=== PATIENT | female | born 1960 | race Caucasian/White ===

== ENCOUNTER 2017-12-08 09:52 | Emergency (ER) | payer SELFPAY ==
[2017-12-08 12:34] LABS: Urine Blood 2+ (NEG); Urine Glucose NEGATIVE (NEG); Urine Protein 2+ (NEG); Urine Specific Gravity >1.030 (1.005-1.030); Urine pH 5.5 (5.0-7.0)
[2017-12-08] MEDS ORDERED: KETOROLAC 30 MG/ML INJ ONE (12:36)
[2017-12-08] MEDS ORDERED: DIPHENHYDRAMINE 50 MG/ML VIAL ONE (12:36)
[2017-12-08] MEDS ORDERED: METOCLOPRAMIDE 10 MG/2mL INJ ONE (12:36)
[2017-12-08] MEDS ORDERED: NA CHLORIDE 0.9% 1,000 ML ONE (12:37)
[2017-12-08 12:55] LABS: Absolute Monocytes 1.4 K/uL (0.1-1.3); Absolute Neutrophil 14.4 K/uL (1.8-8.0); Basophils % 0.1 % (0-1.3); Eosinophils % 0.3 % (0-4.4); Hematocrit 46.8 % (36.0-45.0); Lymphocytes % 5.8 % (15.3-44.8); MCH 29.4 pg (27.0-35.0); MPV 10.8 fL (7.6-11.3); Monocytes % 8.1 % (3.3-12.3); RBC Red Blood Cell Count 5.26 M/uL (3.86-4.86)
[2017-12-08 13:11] LABS: Bicarbonate 27 mEq/L (21-31); Glucose Level 95 mg/dL (65-120); Lipase 15 U/L (22-51); Potassium 3.7 mEq/L (3.6-5.0); Sodium Level 138 mEq/L (135-145)
[2017-12-08 13:18] LABS: ALT/SGPT 14 IU/L (10-60); AST/SGOT 17 IU/L (10-42); Albumin 3.6 g/dL (3.2-5.5); Alkaline Phosphatase 94 IU/L (42-121); BUN Blood Urea Nitrogen 15 mg/dL (6-20); Bilirubin Direct < 0.1 mg/dL (0-0.2); Bilirubin Total 0.4 mg/dL (0.3-1.2)
--- NOTE | 2017-12-08 13:24 | RAD REPORT ---
EXAM DESCRIPTION: CT - Stone Protocol - 12/08/2017 1:10 pm CLINICAL HISTORY: Abdominal pain, diarrhea, history of kidney stones COMPARISON: None. TECHNIQUE: Axial 5 mm thick images were obtained without oral or IV contrast. The [id number] span s the entirety of the system partially obscuring uppermost abdomen and lung bases. All CT scans are performed using dose optimization technique as appropriate and may include automated exposure control or mA/KV adjustment according to patient size. FINDINGS: No hydronephrosis is present and no obstructing ureteral calculi. No suspicious renal mass es. Isodense masses and pyelonephritis are not excluded on a stone protocol CT scan. Urinary bladder is mostly contracted. No bladder calculi seen. Patient has several 3 mm or less nonobstructing calice al calculi on the left. There is a 2 millimeter calcification lower pole calyx on the right. Imaged portions of the liver, spleen and pancreas show no suspicious findings on non-contrast imaging . The 3 centimeter cyst is present in the left upper quadrant localizing within the left lobe of the liver that extends as a normal variant into the far left lateral aspect of the upper abdomen. No gall bladder or biliary tree abnormality identified. No significant adrenal finding. No gastric dilatation or gastric wall thickening. No small bowel abnormality. Acute appendicitis is n ot suspected. There is circumferential wall thickening and edema involving the cecum and ascending co lara. This extends to the hepatic flexure and involved to a lesser degree the right side of the transv erse colon. Left side of the colon does not appear to be involved by any acute process. Sigmoid colon is tortuous. Trace amount of free fluid is seen in the dependent portion of the pelvis. There is a minimal amount of stranding adjacent to the involved right side colon. No hernia, mass or bulky lymphadenopathy noted. No free air, pneumatosis or other inflammatory strand ing. No significant bony abnormality. Infrarenal aorta reaches 2.5 cm in AP diameter. IMPRESSION: Circumferential wall thickening and edema involving the right-side of the colon from cec um to mid transverse colon. This is most likely a nonspecific colitis. Ischemic etiology is not excluded. There are no significan t calcifications at the celiac or SMA origins. Bilateral nonobstructing caliceal calculi. Isodense masses and pyelonephritis are not excluded on stone protocol technique.
[2017-12-08 13:25] LABS: Urine Bacteria 20-50 /HPF (<20); Urine Culture Reflex Order REFLEXED; Urine Mucus 1+ /HPF (NONE SEEN); Urine RBC 20-50 /HPF (NONE SEEN)
[2017-12-08 13:34] LABS: Blood Morphology Comment NOT SEEN (NOT SEEN); Platelet Estimate ADEQ
--- NOTE | 2017-12-08 13:51 | EKG ---
Test Date: 2017-12-08 Test Time: 13:00:14 Validation Scientist: PAUL MEASUREMENT RESULTS: Intervals: Rate: 79 WY: 138 QRSD: 84 QT: 390 QTc: 447 [place]: P: 61 WY: 138 QRS: 65 T: 57 INTERPRETIVE STATEMENTS: Normal sinus rhythm Normal ECG No previous ECG available for comparison Electronically Signed On 12-08-17 13:50:38 CDT by Travis Herrera
[2017-12-08] MEDS ORDERED: FENTANYL CITR 100 MCG/2 ML ONE (14:02)
[2017-12-08] MEDS ORDERED: CEFTRIAXONE/SWI 1gm 1 GM/10 ML SYR ONE (14:02)
[2017-12-08] MEDS ORDERED: METRONIDAZOLE 500mg IVPB 500 MG/100 ML BAG IV ONE (14:03)
--- NOTE | 2017-12-08 14:22 | EDPHYS ---
Physician Documentation [facility] Name: Alvina Baker Age: 56 yrs Sex: Female : 1960 Arrival Date: 12/08/2017 Time: 09:58 Bed 5 Private MD: None, None ED Physician Yash Ireland HPI: 12/08 14:00 This 56 yrs old Female presents to ER via Ambulatory with complaints of gs Abdominal Pain, Diarrhea. 13:58 The patient presents to the emergency department with diarrhea, abdominal pain. gs 14:00 Onset: The symptoms/episode began/occurred 3 day(s) ago, and became worse and became gs persistent. Possible causes: unknown. The symptoms are aggravated by nothing. The symptoms are alleviated by nothing. Associated signs and symptoms: Pertinent positives: diarrhea, nausea, Pertinent negatives: constipation, dysuria, fever, GI bleeding, vomiting. Severity of symptoms: At their worst the symptoms were moderate in the emergency department the symptoms are unchanged. The patient has not experienced similar symptoms in the past. The patient has not recently seen a physician. 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 - Social history:: Smoking status: Patient uses tobacco products, smokes one pack cigarettes per day. ROS: 14:00 Constitutional: Negative for chills, fever. gs 14:00 Cardiovascular: Negative for chest pain. 14:00 Respiratory: Negative for shortness of breath. 14:00 Neuro: Positive for headache, not as bad as usual migraine. 14:00 All other systems are negative. Exam: 14:00 Head/Face: Normocephalic, atraumatic. Eyes: Pupils equal round and reactive to light, gs extra-ocular motions intact. Lids and lashes normal. Conjunctiva and sclera are non-icteric and not injected. Cornea within normal limits. Periorbital areas with no swelling, redness, or edema. ENT: Nares patent. No nasal discharge, no septal abnormalities noted. Tympanic membranes are normal and external auditory canals are clear. Oropharynx with no redness, swelling, or masses, exudates, or evidence of obstruction, uvula midline. Mucous membranes moist. Neck: Trachea midline, no thyromegaly or masses palpated, and no cervical lymphadenopathy. Supple, full range of motion without nuchal rigidity, or vertebral point tenderness. No Meningismus. Chest/axilla: Normal chest wall appearance and motion. Nontender with no deformity. No lesions are appreciated. 14:00 Constitutional: The patient appears alert, awake. 14:00 Constitutional: The patient appears uncomfortable. 14:25 Respiratory: Lungs have equal breath sounds bilaterally, clear to auscultation and gs percussion. No rales, rhonchi or wheezes noted. No increased work of breathing, no retractions or nasal flaring. Back: No spinal tenderness. No costovertebral tenderness. Full range of motion. Skin: Warm, dry with normal turgor. Normal color with no rashes, no lesions, and no evidence of cellulitis. MS/ Extremity: Pulses equal, no cyanosis. Neurovascular intact. Full, normal range of motion. Neuro: Awake and alert, GCS 15, oriented to person, place, time, and situation. Cranial nerves II-XII grossly intact. Motor strength 5/5 in all extremities. Sensory grossly intact. Cerebellar exam normal. Normal gait. 14:25 Cardiovascular: Rate: normal, Rhythm: regular, Pulses: no pulse deficits are appreciated. 14:25 ECG was reviewed by the Attending Physician. 14:25 Abdomen/GI: Palpation: mild abdominal tenderness, in the suprapubic area, right lower quadrant and left lower quadrant, rebound tenderness, is not appreciated. Vital Signs: 10:39 BP 147 / 94; Pulse 99; Resp 18; Temp 97.4; Pulse Ox 96% on R/A; Weight 63.5 kg; Height iw 5 ft. 3 in. (160.02 cm); Pain 7/10; 12:30 BP 139 / 88; Pulse 96; Resp 18; Pulse Ox 97% on R/A; tw2 13:18 BP 143 / 78; Pulse 82; Resp 17; Pulse Ox 97% on R/A; tw2 13:56 BP 130 / 76; Pulse 78; Resp 16; Pulse Ox 99% on R/A; jl7 14:46 BP 109 / 61; Pulse 77; Resp 16 S; Pulse Ox 97% on R/A; jl7 10:39 Body Mass Index 24.80 (63.50 kg, 160.02 cm) iw MDM: 12:28 Patient medically screened. 14:17 Differential diagnosis: Nonspecific abd pain, diverticulitis, viral gastroenteritis, gs gastroenteritis. Data reviewed: vital signs, nurses notes. Counseling: I had a detailed discussion with the patient and/or guardian regarding: the presence of at least one elevated blood pressure reading (>120/80) during this emergency department visit. Response to treatment: the patient's symptoms have markedly improved after treatment, patient is well hydrated. tolerating po, and as a result, I will discharge patient. Special discussion: I have referred the patient to see his PCP for further evaluation of high blood pressure. 12/08 12:26 Order name: Urine Dipstick--Ancillary (enter results); Complete Time: 13:29 12/08 12:30 Order name: Basic Metabolic Panel; Complete Time: 13:29 12/08 12:30 Order name: CBC with Diff; Complete Time: 13:55 12/08 12:30 Order name: Hepatic Function; Complete Time: 13:29 12/08 12:30 Order name: Lipase; Complete Time: 13:29 12/08 12:30 Order name: Urine Microscopic Only; Complete Time: 13:29 12/08 12:30 Order name: CT Stone Protocol; Complete Time: 13:29 12/08 13:26 Order name: Urine Culture [facility] 12/08 13:34 Order name: Blood Culture* 12/08 13:35 Order name: Manual Differential; Complete Time: 13:55 [facility] 12/08 12:30 Order name: IV Saline Lock; Complete Time: 12:34 12/08 12:30 Order name: Labs collected and sent; Complete Time: 12:35 12/08 12:30 Order name: EKG; Complete Time: 12:31 12/08 12:30 Order name: EKG - Nurse/Tech; Complete Time: 12:50 gs EC:25 Rate is 79 beats/min. Rhythm is regular. OR interval is normal. QRS interval is normal. gs T waves are Normal. No ST changes noted. Clinical impression: Abnormal EKG without significant change. Interpreted by me. Administered Medications: 12:42 Drug: TORadol 30 mg Route: IVP; Site: left antecubital; tw2 14:16 Follow up: Response: No adverse reaction; Pain is unchanged, physician notified; Pain tw2 is unchanged, physician notified, pt states "headache is better, just not my stomach" 12:44 Drug: Reglan 5 mg Route: IVP; Site: left antecubital; tw2 14:16 Follow up: Response: No adverse reaction tw2 12:47 Drug: Benadryl 12.5 mg Route: IVP; Site: left antecubital; tw2 14:17 Follow up: Response: No adverse reaction tw2 12:49 Drug: NS 0.9% 1000 ml Route: IV; Rate: 1 bolus; Site: left antecubital; tw2 14:15 Follow up: Response: No adverse reaction; IV Status: Completed infusion; IV Intake: tw2 1000ml 14:52 Follow up: Response: No adverse reaction; IV Status: Completed infusion; IV Intake: tw2 1000ml 14:12 Drug: Flagyl 500 mg Volume: 100 ml; Route: IVPB; Rate: 200 ml/hr; Infused Over: 30 tw2 mins; Site: left antecubital; 14:52 Follow up: Response: No adverse reaction; IV Status: Completed infusion tw2 14:12 Drug: fentaNYL (PF) 50 mcg Route: IVP; Site: left antecubital; tw2 14:53 Follow up: Response: No adverse reaction; Pain is decreased tw2 14:13 Drug: Rocephin - (cefTRIAXone) 1 grams {Note: IVP available only from pharmacy.} Route: tw2 IVPB; Infused Over: 2 mins; Site: left antecubital; 14:14 Follow up: Response: No adverse reaction; IV Status: Completed infusion tw2 Disposition: 12/08/17 14:21 Discharged to Home. Impression: Infectious gastroenteritis and colitis, unspecified, Cystitis. - Condition is Stable. - Discharge Instructions: Urinary Tract Infection, Diarrhea, [id number]. - Prescriptions for Cephalexin 500 mg Oral Capsule - take 2 capsule by ORAL route every 6 hours for 7 days; 28 capsule. Flagyl 500 mg Oral Tablet - take 1 tablet by ORAL route every 8 hours for 7 days; 21 tablet. Tylenol- Codeine #4 300-60 mg Oral Tablet - take 1 tablet by ORAL route every 6 hours As needed; 6 tablet. - Family Work Release, Medication Reconciliation Form, Thank You Letter, Antibiotic Education, Prescription Opioid Use form. - Follow up: Private Physician; When: 2 - 3 days; Reason: Re-evaluation by your physician. Signatures: Dispatcher [employer] Jody Loya RN RN iw Sheyla Garcia RN RN tw2 Yash Ireland MD MD gs Corrections: (The following items were deleted from the chart) 14:02 13:58 This 56 yrs old Female presents to ER via Ambulatory with complaints of gs Vomiting/Diarrhea. gs
--- NOTE | 2017-12-08 14:22 | ER ---
Nurse's Notes [facility] Name: Alvina Baker Age: 56 yrs Sex: Female : 1960 Arrival Date: 12/08/2017 Time: 09:58 Bed 5 Private MD: None, None Diagnosis: Infectious gastroenteritis and colitis, unspecified;Cystitis Presentation: 12/08 10:37 Presenting complaint: Patient states: started and Friday with bad headache, iw diarrhea Friday and back pain, now has sharp pain to stomach, low abd pain 7/10, cramping, intermittent. Transition of care: patient was not received from another setting of care. Onset of symptoms was December 05, 2017. Initial Sepsis Screen: Does the patient meet any 2 criteria? No. Patient's initial sepsis screen is negative. Does the patient have a suspected source of infection? No. Patient's initial sepsis screen is negative. Care prior to arrival: None. 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 - Social history:: Smoking status: Patient uses tobacco products, smokes one pack cigarettes per day. Screenin:51 Abuse screen: Denies threats or abuse. Nutritional screening: No deficits noted. tw2 Tuberculosis screening: No symptoms or risk factors identified. Fall Risk None identified. Assessment: 12:52 General: Appears uncomfortable, well groomed, Behavior is calm, cooperative, tw2 appropriate for age. Pain: Complains of pain in right lower quadrant. Neuro: Level of Consciousness is awake, alert, obeys commands, Oriented to person, place, time, situation. Cardiovascular: Denies chest pain, shortness of breath, Heart tones S1 S2 Capillary refill < 3 seconds Patient's skin is warm and dry. Respiratory: Airway is patent Respiratory effort is even, unlabored, Respiratory pattern is regular, symmetrical, Breath sounds are clear bilaterally. GI: Abdomen is flat, non-distended, Bowel sounds present X 4 quads. Abdomen is tender to palpation in right lower quadrant and left lower quadrant Reports lower abdominal pain, diarrhea, nausea. : No signs and/or symptoms were reported regarding the genitourinary system. EENT: No signs and/or symptoms were reported regarding the EENT system. Derm: No signs and/or symptoms reported regarding the dermatologic system. Skin is intact, is healthy with good turgor, Skin temperature is warm. Musculoskeletal: Range of motion: intact in all extremities. 13:19 Reassessment: Patient appears in no apparent distress at this time. No changes from tw2 previously documented assessment. Patient and/or family updated on plan of care and expected duration. Pain level reassessed. Patient is alert, oriented x 3, equal unlabored respirations, skin warm/dry/pink. 14:20 Reassessment: Patient appears in no apparent distress at this time. Patient and/or tw2 family updated on plan of care and expected duration. Pain level reassessed. Patient is alert, oriented x 3, equal unlabored respirations, skin warm/dry/pink. 14:53 Reassessment: Patient appears in no apparent distress at this time. Patient and/or tw2 family updated on plan of care and expected duration. Pain level reassessed. Patient is alert, oriented x 3, equal unlabored respirations, skin warm/dry/pink. Patient states feeling better. Vital Signs: 10:39 BP 147 / 94; Pulse 99; Resp 18; Temp 97.4; Pulse Ox 96% on R/A; Weight 63.5 kg; Height iw 5 ft. 3 in. (160.02 cm); Pain 7/10; 12:30 BP 139 / 88; Pulse 96; Resp 18; Pulse Ox 97% on R/A; tw2 13:18 BP 143 / 78; Pulse 82; Resp 17; Pulse Ox 97% on R/A; tw2 13:56 BP 130 / 76; Pulse 78; Resp 16; Pulse Ox 99% on R/A; jl7 14:46 BP 109 / 61; Pulse 77; Resp 16 S; Pulse Ox 97% on R/A; jl7 10:39 Body Mass Index 24.80 (63.50 kg, 160.02 cm) ED Course: 09:58 Patient arrived in ED. mr 09:58 None, None is Private Physician. mr 10:38 Triage completed. iw 10:39 Arm band placed on. iw 12:15 Sheyla Garcia, RN is Primary Nurse. tw2 12:21 Yash Ireland MD is Attending Physician. gs 12:30 Placed in gown. Bed in low position. Side rails up X2. Adult w/ patient. Pulse ox on. tw2 NIBP on. Warm blanket given. 12:35 Inserted saline lock: 20 gauge in left antecubital area, using aseptic technique. Blood tw2 collected. 12:45 Urine collected: clean catch specimen, cloudy, bradley colored. jb1 12:50 No provider procedures requiring assistance completed. tw2 13:09 CT Stone Protocol In Process Unspecified. EDMS 13:10 EKG done, by technical support technician. reviewed by Yash Ireland MD. at1 14:24 Awaiting: completion of IV prior to discharge. tw2 14:54 IV discontinued, intact, bleeding controlled, No redness/swelling at site. Pressure tw2 dressing applied. Administered Medications: 12:42 Drug: TORadol 30 mg Route: IVP; Site: left antecubital; tw2 14:16 Follow up: Response: No adverse reaction; Pain is unchanged, physician notified; Pain tw2 is unchanged, physician notified, pt states "headache is better, just not my stomach" 12:44 Drug: Reglan 5 mg Route: IVP; Site: left antecubital; tw2 14:16 Follow up: Response: No adverse reaction tw2 12:47 Drug: Benadryl 12.5 mg Route: IVP; Site: left antecubital; tw2 14:17 Follow up: Response: No adverse reaction tw2 12:49 Drug: NS 0.9% 1000 ml Route: IV; Rate: 1 bolus; Site: left antecubital; tw2 14:15 Follow up: Response: No adverse reaction; IV Status: Completed infusion; IV Intake: tw2 1000ml 14:52 Follow up: Response: No adverse reaction; IV Status: Completed infusion; IV Intake: tw2 1000ml 14:12 Drug: Flagyl 500 mg Volume: 100 ml; Route: IVPB; Rate: 200 ml/hr; Infused Over: 30 tw2 mins; Site: left antecubital; 14:52 Follow up: Response: No adverse reaction; IV Status: Completed infusion tw2 14:12 Drug: fentaNYL (PF) 50 mcg Route: IVP; Site: left antecubital; tw2 14:53 Follow up: Response: No adverse reaction; Pain is decreased tw2 14:13 Drug: Rocephin - (cefTRIAXone) 1 grams {Note: IVP available only from pharmacy.} Route: tw2 IVPB; Infused Over: 2 mins; Site: left antecubital; 14:14 Follow up: Response: No adverse reaction; IV Status: Completed infusion tw2 Intake: 14:15 IV: 1000ml; Total: 1000ml. tw2 14:52 IV: 1000ml; Total: 2000ml. tw2 Outcome: 14:21 Discharge ordered by . 14:54 Discharged to home ambulatory, with significant other. tw2 14:54 Condition: stable 14:54 Discharge instructions given to patient, significant other, Instructed on discharge instructions, follow up and referral plans. no drinking with medication, no driving heavy equipment, medication usage, Demonstrated understanding of instructions, follow-up care, medications, Prescriptions given X 3. 14:55 Patient left the ED. tw2 Addendum: 12/11/2017 08:07 Addendum: Culture Results: Positive urine culture. No further action required. Bacteria s s sensitive to prescribed antibiotic. Signatures: Dispatcher [employer] Sixto Linares jb1 Arleth Estrella Jody Coelho, Maria Guadalupe Calix RN, RN RN ss Maria M todd, lead sustainability specialist EKG Tat1 Sheyla Garcia RN RN tw2 Natalia Mccartney RN RN jl7 Yash Ireland MD MD Corrections: (The following items were deleted from the chart) 12/08 12:51 12:50 Inserted saline lock: 20 gauge in left antecubital area, using aseptic technique. tw2 Blood collected. tw2
== END 2017-12-08 14:55 | disposition home or self-care (01) ==
LOC: ER 09:52
DX: A09 Infectious gastroenteritis and colitis, unspecified (principal); N30.90 Cystitis, unspecified without hematuria; E03.9 Hypothyroidism, unspecified; F17.210 Nicotine dependence, cigarettes, uncomplicated
CPT/HCPCS: 36415; 74176; 76377; 80048; 80076; 81003; 81015; 83690; 85025; 87040; 87077; 87086; 87088; 87186; 93005; 96361; 96365; 96375; 99284; J0696; J2765; J3010; J7030